=== PATIENT | female | born 1945 | race Caucasian/White ===

== ENCOUNTER 2020-06-09 04:28 | Inpatient (IN) | payer MEDICARE ==
[~2020-06-09] VITALS: Ht 170.2 cm; Wt 85.7 kg
[2020-06-09] MEDS ORDERED: LEVO100T9 PO (12:23)
[2020-06-09] MEDS ORDERED: HYDR-3980 PO (12:23)
[2020-06-09] MEDS ORDERED: LORA-259 PO (12:23)
[2020-06-09] MEDS ORDERED: POTA20TA83 PO (12:25)
[2020-06-09] MEDS ORDERED: MAG HYDROX/AL HYDROX/SIMETH 30 ML UDC PO PRN (12:30)
[2020-06-09] MEDS ORDERED: LORAZEPAM 0.5 MG TABLET PO PRN (12:30)
[2020-06-09] MEDS ORDERED: BLOOD SUGAR DIAGNOSTIC 1 EACH STRIP IN ONE (12:30)
[2020-06-09] MEDS ORDERED: MAGNESIUM HYDROXIDE 30 ML UDC PO PRN (12:30)
[2020-06-09] MEDS ORDERED: ZOLPIDEM TARTRATE 5 MG TABLET PO PRN (12:30)
--- NOTE | 2020-06-09 12:46 | NUR ---
GPS RN ADMITTING NOTE: RECEIVED PATIENT FROM [facility] PATIENT ARRIVED ON THIS UNIT AT 1200 VIA WHEELCHAIR WITH 2 EMT ESCORT. PATIENT ADMITTED ON A 5150 HOLD FOR DTO,GD PER HOLD PATIENT DAUGHTER STATES THAT PATIENT HAS BEEN INCREASINGLY MORE HOSTILE AND PARANOID TOWARDS FAMILY MEMBERS AND FEEL THAT SHE IS BECOMING MANIC PATIENT CONTINUES TO BE DISORIENTED AND WITH BEEN FOR REDIRECTING MULTIPLE TIMES, PT ACCUSED STAFF FOR STEALING HER ITEMS AND AGGRESSIVE TOWARDS STAFF THE 5150 WAS REVIEWED UPON FACE TO FACE ASSESSMENT PATIENT IS CURRENTLY SITTING IN BED AWAKE, HAS NO S/S OR COMPLAINTS OF PAIN. PATIENT IS DISPLAYING NO S/S OF APPARENT DISTRESS. PATIENT BREATHING IS UNLABORED WITH EQUAL RISE AND FALL OF THE CHEST. PATIENT IS ALERT AND ORIENTATED X 3 ON ROOM AIR. PATIENT IS NOTED TO BEING DELUSIONAL, DISHEVELED, DISORGANIZED,PATIENT DENIES SUICIDE IDEATIONS AND HOMICIDAL IDEATIONS AT THIS TIME. PATIENT IS UNDER THE PSYCHIATRIC CARE OF DR. DILLON AND THE MEDICAL CARE OF DR NARVAEZ . PATIENT BELONGINGS WERE INVENTORIED AND CHECKED FOR CONTRABAND.PT ACCUSED FOR STEALING HER MONEY CHECKED WITH SPORT INTERN PT HAS NO MONEY ALL CONTRABAND REMOVED AND STORED IN PATIENT HALLWAY LOCKER. PT REFUSED SKIN ASSESSMENT, PATIENTS RIGHTS HANDBOOK, PT SIGNS ALL PAPER WORK. PATIENT ORIENTATED TO ROOM, FLOOR, AND STAFF WITH ALL QUESTIONS ANSWERED. PATIENT EDUCATED ON THE USE OF THE CALL LAMA. PATIENT BED SIDE RAILS ARE UP X 2 FOR SAFETY. PATIENT BED IS LOCKED, LOW AND I WILL CONTINUE TO MONITOR THIS PATIENT Q 15 MIN WITH THE HELP OF STAFF TO MAINTAIN SAFETY.
[2020-06-09] MEDS ORDERED: LORAZEPAM 1 MG TABLET PO PRN (13:00)
[2020-06-09 16:00] VITALS: BP 104/56
[2020-06-09 19:33] VITALS: BP 115/77
[2020-06-10 08:15] VITALS: BP_SYST 119; BP_SYST 130; BP_DIAS 67; BP_DIAS 79
[2020-06-10 08:51] LABS: ALBUMIN 3.2 g/dL (3.4-5.0); BILIRUBIN,TOTAL 0.4 mg/dL (0.2-1.0); CALCIUM, SERUM 8.7 mg/dL (8.5-10.1); CHOLESTEROL 185 mg/dL (<200); HDL CHOLESTEROL 49 mg/dL (40-60); LDL 120 mg/dL (0-99); POTASSIUM 3.6 mmol/L (3.5-5.1); TOTAL PROTEIN, SERUM 6.5 g/dL (6.4-8.2); TRIGLYCERIDES 125 mg/dL (30-150)
[2020-06-10] MEDS: LEVOTHYROXINE SODIUM 100 MCG TABLET PO SCH ×2 (08:58→23:47)
[2020-06-10] MEDS: POTASSIUM CHLORIDE 20 MEQ TAB.PRT.SR PO SCH (08:58)
[2020-06-10] MEDS: ACETAMINOPHEN 325 MG TABLET PO PRN (09:03)
--- NOTE | 2020-06-10 09:09 | NUR ---
GPS/RN-NOTES DURING MEDICATIONS ADMINISTRATION , PATIENT REQUESTING FOR PAIN MEDICATIONS FOR LOWER BACK PAIN, DEMAND GENERATOR MANAGER OFFERED TYLENOL THE ONLY PAIN MEDICATIONS ORDERED AT THIS TIME. PATIENT STARTED BEING ANGRY AND STATED " WHY DON'T YOU SEE MY MEDICATIONS, YOUR STUPID" YOU SHOULD GO BACK WHERE YOU BELONG",I WILL MAKE SURE I WILL REPORT YOU AND GET YOU SUED,I WILL CALL MY CHECKING DEPARTMENT SUPERVISOR". REDIRECTED PATIENT AND TOLD HER THAT I WILL TALK TO THE COMMAND POST CRAFTSMAN REGARDING HER PAIN MEDICATIONS. PATIENT TOOK TYLENOL 650 MG P.O WILL CONT. MONITORING FOR SAFETY AND BEHAVIOR.
--- NOTE | 2020-06-10 10:52 | NUR ---
RN-CO: DR DILLON MADE AWARE THAT SON(JESSE) WANTS TO TALK TO HIM.
[2020-06-10] MEDS: HYDROCODONE/APAP 10/325MG 1 EA TABLET PO PRN ×3 (11:41→23:47)
--- NOTE | 2020-06-10 11:42 | NUR ---
GPS/RN-NOTES PATIENT C/O 8 LOWER BACK PAIN. NORCO 5/325MG 1 TAB. P.O GIVEN PRN ORDER. WILL CONT. MONITORING FOR SAFETY.
--- NOTE | 2020-06-10 12:25 | NUR ---
Family Contact: SW called the pts son, Boaz ([phone]), and left a voicemail to discuss the pts treatment and discharge plan.
[2020-06-10] MEDS: ESCITALOPRAM OXALATE (10 MG) 10 MG TABLET PO SCH (13:37)
--- NOTE | 2020-06-10 14:01 | NUR ---
GROUP NOTE: Topic: Adapting to our environment. dairy farm worker provided active listening, motivational interviewing, and reflected patient's thoughts and feelings. Patient shared about her concerns about being in the hospital and not feeling comfortable with some decisions that were made on her behalf. SW discussed her feeling of discomfort and provided some coping skills for patient to be able to adjust to her environment.
--- NOTE | 2020-06-10 14:52 | NUR ---
Initial Discharge Plan: Pt currently resides at her apartment alone located at [address] [place] [address]; ([phone]). Per pt, she would like to return to her home. SW will work with the pt and the MD regarding appropriate discharge planning. SW will form a safe and proper plan.
[2020-06-10 16:00] VITALS: BP 140/83
--- NOTE | 2020-06-10 17:48 | NUR ---
GPS/RN-NOTES PATIENT C/O 06/21 LOWER BACK PAIN.STATED " I NEED MY NORCO NOW, I ALWAYS HAVE PAIN ON MY LOWER BACK". NORCO 5/325MG 1 TAB. P.O GIVEN PRN ORDER. WILL CONT. MONITORING FOR SAFETY.
[2020-06-10 20:08] VITALS: BP 101/61
[2020-06-10] MEDS ORDERED: TRAZODONE 50 MG TABLET PO PRN (22:00)
--- NOTE | 2020-06-10 23:47 | NUR ---
GPS-RN NOTE: GENERALIZED PAIN PATIENT C/O GENERALIZED PAIN ON A PAIN SCALE OF 7/10. ADMINISTERED NORCO 5/325MG PO ORDERED. WILL CONTINUE TO MONITOR. Addendum: 06/11/20 at 0227 by MAYUR BOWER RN ADMINISTERED NORCO 10/325MG PO ORDERED.
[2020-06-11] MEDS: HYDROCODONE/APAP 10/325MG 1 EA TABLET PO PRN (05:48)
--- NOTE | 2020-06-11 05:48 | NUR ---
GPS-RN NOTE: GENERALIZED PAIN PATIENT C/O GENERALIZED PAIN ON A PAIN SCALE OF 7/10. ADMINISTERED NORCO 10/325MG PO ORDERED. WILL CONTINUE TO MONITOR FOR THE EFFECTIVENESS OF MEDICATION.
[2020-06-11 08:00] VITALS: BP 97/62
[2020-06-11] MEDS: POTASSIUM CHLORIDE 20 MEQ TAB.PRT.SR PO SCH (08:21)
[2020-06-11] MEDS: ESCITALOPRAM OXALATE (10 MG) 10 MG TABLET PO SCH (08:21)
[2020-06-11] MEDS: ACETAMINOPHEN 325 MG TABLET PO PRN (08:39)
--- NOTE | 2020-06-11 08:41 | NUR ---
GPS/RN-NOTES PATIENT C/O RIGHT SHOULDER PAIN AND REQUESTING TYLENOL. TYLENOL 650MG P.O GIVEN PRN ORDER. WILL CONT. MONITORING FOR SAFETY.
--- NOTE | 2020-06-11 11:29 | NUR ---
Discharge Note: Patient is choosing to be discharged AMA back home today [address] [place] [address] ([phone]). Patient will be provided Taxi transportation and is given a Taxi Voucher today at 12pm. Patient presents with euthymic mood and congruent affect. Patient denies suicidal or homicidal ideation. Patient is aware and agreeable with discharge plans. Patient is alert and oriented times 4 and is able to provide care for herself. Patient will be following up with her primary care physician Dr. Walsh, who is unavailable and the covering physician following up will be Dr. Mcginnis [address] [facility] [address], [place], [address] ([phone]) and has an appointment scheduled on June 16, 2020 at 10:45pm, spoke with Terri wire drawer who will also be setting up a referral for outpatient psychiatry for the patient and confirmed that Dr. Mcginnis will monitor patients psychotropic medications. Patient son, Boaz Alcaraz ([phone]) is aware and agreeable with discharge plan. Addendum: 06/11/20 at 1150 by [employer] CRUMP ESTEBAN received a call from Barbra (did not receive phone #), patient's daughter in law and discussed that the patient is choosing to leave AMA today.
--- NOTE | 2020-06-11 11:39 | NUR ---
GPS/RN-NOTES PATIENT WAS DISCHARGE AMA DR. DILLON ( PSYCHIATRIST) AND .VETO WINN ( HEAD FILTER TANK TENDER HELPER) MADE AWARE . PATIENT DID NOT VERBALIZE SI/HI,DENIES VISUAL/AUDITORY HALLUCINATIONS AT THE TIME OF DISCHARGE. PER SW SHE SPOKE TO PATIENT'S DTR -IN-LAW KAMALJIT AND THAT SHE'S AWARE THAT PATIENT IS GOING AMA. PATIENT WAS WHEELED DOWN BY ONE DIRECTOR OF PRODUCT DEVELOPMENT STAFF IN THE LOBBY FOR SAFETY. ALL BELONGINGS WAS GIVEN BACK TO THE PATIENT.REFUSED TO SIGN BELONGING LIST,CHARGE NURSE AWARE. PATIENT LEFT THE UNIT IN STABLE CONDITION ALERT ORIENTED X4 ,NO ACUTE DISTRESS NOTED. AMBULATORY STEADY GAIT. MASK WAS OFFERED TO THE PATIENT UPON DISCHARGE. PATIENT LEFT VIA TAXI.
== END 2020-06-11 11:37 | disposition left against medical advice (07) | DRG 885 ==
LOC: GPS 11:46
PROVIDERS: ADMIT Psychiatry & Neurology Psychiatry; ATTEND Nurse Practitioner Acute Care
DX: F31.30 Bipolar disorder, current episode depressed, mild or moderate severity, unspecified (principal); F41.9 Anxiety disorder, unspecified; E03.9 Hypothyroidism, unspecified; M19.90 Unspecified osteoarthritis, unspecified site; Z73.6 Limitation of activities due to disability; G31.84 Mild cognitive impairment of uncertain or unknown etiology; F19.10 Other psychoactive substance abuse, uncomplicated
CPT/HCPCS: 36415; 80053-TC; 80061-TC; 82962-TC